=== PATIENT | female | born 1980 | race Caucasian/White ===

== ENCOUNTER 2016-11-17 13:35 | Inpatient (IN) | payer OTHER ==
[~2016-11-17] VITALS: Ht 167.6 cm; Wt 81.2 kg
[2016-11-17] MEDS ORDERED: ROPINIROLE HY0.25 MG PO (13:49)
[2016-11-17] MEDS ORDERED: 'CLONIDINE0.1 MG PO (13:50)
[2016-11-17] MEDS ORDERED: QUETIAPINE FUM400 M1 PO (13:51)
[2016-11-17] MEDS ORDERED: TOPAMAX50 MG PO ×2 (13:52→15:16)
[2016-11-17] MEDS ORDERED: ZANAFLEX4 MG PO (13:53)
[2016-11-17] MEDS ORDERED: TRAZODONE50 MG PO (13:54)
[2016-11-17] MEDS ORDERED: NEURONTIN300 MG PO (13:55)
[2016-11-17] MEDS ORDERED: EFFEXOR XR150 M1 PO (13:58)
[2016-11-17] MEDS ORDERED: LOVASTATIN20 MG PO (14:00)
[2016-11-17] MEDS ORDERED: PROPRANOLOL HCL40 M1 PO (14:00)
[2016-11-17] MEDS ORDERED: OMEPRAZOLE D/R20 MG PO (14:01)
[2016-11-17] MEDS ORDERED: GOOD NEIGHBOR L10 MG PO (14:02)
[2016-11-17] MEDS ORDERED: ARMOUR THYROID60 MG PO (14:03)
[2016-11-17 15:07] LABS: BILIRUBIN NEGATIVE (NEGATIVE); BLOOD NEGATIVE (NEGATIVE); CLARITY CLEAR (CLEAR); COLOR YELLOW (YELLOW); GLUCOSE NEGATIVE (NEGATIVE); KETONE NEGATIVE (NEGATIVE); LEUKO ESTERASE NEGATIVE (NEGATIVE); NITRITE NEGATIVE (NEGATIVE); PROTEIN NEGATIVE (NEGATIVE); UROBILINOGEN 0.2 E.U./dl (0.2-1.0)
[2016-11-17] MEDS ORDERED: SEROQUEL100 MG PO (15:14)
[2016-11-17 15:18] LABS: BASO % 0.5 % (0.0-1.0); EOS # 0.2 10*3/uL (0.0-0.4); EOS % 4.6 % (1.0-4.0); HEMATOCRIT 37.5 % (37.0-47.0); HEMOGLOBIN 12.1 g/dl (12.0-16.0); LYMPH # 1.9 10*3/uL (1.3-4.4); LYMPH % 43.6 % (27.0-41.0); MEAN CELL VOLUME 95.7 fl (81.0-99.0); MEAN CORPUSCULAR HGB 30.9 pg (27.0-31.0); MEAN CORPUSCULAR HGB CONC 32.3 g/dl (33.0-37.0); MEAN PLATELET VOLUME 10.3 fl (9.6-12.3); MONO # 0.3 10*3/uL (0.1-1.0); MONO % 7.4 % (3.0-9.0); NEUT # 1.9 10*3/uL (2.3-7.9); NEUT % 43.7 % (47.0-73.0); PLATELET COUNT AUTOMATED 140 10*3/uL (130-400); RED BLOOD COUNT 3.92 10*6/uL (4.10-5.10); RED CELL DISTRI WIDTH 13.4 % (0-14.5); WHITE BLOOD COUNT 4.3 10*3/uL (4.8-10.8)
[2016-11-17 15:19] LABS: MUCOUS TRACE; RBC 0-2 rbc/hpf (0-2); URINE REFLEX COMMENT NO (NO); WBC 0-2 wbc/hpf (0-5)
[2016-11-17 15:21] LABS: URINE AMPHETAMINES < 1000 (1000ng/ml); URINE BARBITURATES < 200 (200ng/ml); URINE COCAINE < 300 (300ng/ml)
[2016-11-17 15:22] LABS: INTERNATIONAL NORM RATIO 0.9 (2.0-3.5)
[2016-11-17 15:34] LABS: ALKALINE PHOSPHATASE 78 U/L (45-117); BILIRUBIN, TOTAL 0.1 mg/dl (0.2-1.0); BUN 16 mg/dl (7-24); CARBON DIOXIDE 17 mmol/L (21-32); CHLORIDE 114 mmol/L (98-107); EST GLOM FILT AFRICAN AMERICAN > 60 ml/min; GLUCOSE 101 mg/dL (65-99); POTASSIUM 4.1 mmol/L (3.5-5.1); SGOT/AST 29 IU/L (3-35); SGPT/ALT 25 U/L (12-78); SODIUM 141 mmol/L (136-145); TOTAL PROTEIN 6.6 gm/dL (6.4-8.2)
[2016-11-17 16:00] VITALS: BP 99/51
[2016-11-17 20:00] VITALS: BP 99/57
[2016-11-18] VITALS: BP 101/53
[2016-11-18 07:07] LABS: HIV 1+2 AB + HIV1 P24 AG Non Reactive (Non Reactive)
[2016-11-18 08:00] VITALS: BP 86/46
[2016-11-18 12:00] VITALS: BP 94/52
[2016-11-18 16:00] VITALS: BP 112/59
[2016-11-18 20:00] VITALS: BP 117/59
[2016-11-19] VITALS: BP 124/82
[2016-11-19 08:00] VITALS: BP 91/54
[2016-11-19 16:00] VITALS: BP 101/54
[2016-11-19] MEDS ORDERED: ATARAX,VISTARIL50 MG PO (18:25)
[2016-11-19] MEDS ORDERED: ZOFRAN 4 MG ED2 TAB PO (18:25)
[2016-11-19 20:00] VITALS: BP 109/47
[2016-11-20] VITALS: BP 108/54
[2016-11-20 06:31] LABS: BASO % 0.2 % (0.0-1.0); EOS # 0.2 10*3/uL (0.0-0.4); HEMATOCRIT 35.3 % (37.0-47.0); HEMOGLOBIN 11.6 g/dl (12.0-16.0); LYMPH # 2.4 10*3/uL (1.3-4.4); LYMPH % 53.9 % (27.0-41.0); MEAN CELL VOLUME 92.7 fl (81.0-99.0); MEAN CORPUSCULAR HGB 30.4 pg (27.0-31.0); MEAN CORPUSCULAR HGB CONC 32.9 g/dl (33.0-37.0); MEAN PLATELET VOLUME 9.6 fl (9.6-12.3); MONO # 0.5 10*3/uL (0.1-1.0); MONO % 10.2 % (3.0-9.0); NEUT # 1.4 10*3/uL (2.3-7.9); NEUT % 30.7 % (47.0-73.0); PLATELET COUNT AUTOMATED 192 10*3/uL (130-400); RED BLOOD COUNT 3.81 10*6/uL (4.10-5.10); WHITE BLOOD COUNT 4.4 10*3/uL (4.8-10.8)
[2016-11-20 07:08] LABS: EST GLOM FILT AFRICAN AMERICAN > 60 ml/min
[2016-11-20 08:00] VITALS: BP 116/54
[2016-11-20 08:33] LABS: HEPATITIS C VIRUS ANTIBODY >11.0 s/co (0.0-0.9)
[2016-11-20 11:53] LABS: BILIRUBIN NEGATIVE (NEGATIVE); BLOOD NEGATIVE (NEGATIVE); CLARITY CLOUDY (CLEAR); COLOR YELLOW (YELLOW); GLUCOSE NEGATIVE (NEGATIVE); KETONE TRACE (NEGATIVE); LEUKO ESTERASE NEGATIVE (NEGATIVE); NITRITE NEGATIVE (NEGATIVE); PROTEIN TRACE (NEGATIVE); SPECIFIC GRAVITY 1.025 (1.005-1.030)
[2016-11-20 11:59] LABS: BACTERIA 1+; EPITHELIAL CELLS 16-20
[2016-11-20 12:00] VITALS: BP 120/56
[2016-11-20 12:00] LABS: URINE REFLEX COMMENT NO (NO)
== END 2016-11-20 13:40 | disposition home or self-care (01) | DRG 897 ==
LOC: 4E 13:35
PROVIDERS: Internal Medicine; Student in an Organized Health Care Education/Training Program
DX: F11.23 Opioid dependence with withdrawal (principal); E87.8 Other disorders of electrolyte and fluid balance, not elsewhere classified; E44.0 Moderate protein-calorie malnutrition; F31.9 Bipolar disorder, unspecified; F14.10 Cocaine abuse, uncomplicated; F41.9 Anxiety disorder, unspecified; G40.909 Epilepsy, unspecified, not intractable, without status epilepticus; G43.909 Migraine, unspecified, not intractable, without status migrainosus; B19.20 Unspecified viral hepatitis C without hepatic coma; K52.9 Noninfective gastroenteritis and colitis, unspecified; F17.200 Nicotine dependence, unspecified, uncomplicated; Z90.710 Acquired absence of both cervix and uterus; Z80.9 Family history of malignant neoplasm, unspecified; Z79.899 Other long term (current) drug therapy; Z71.6 Tobacco abuse counseling; Z68.28 Body mass index [BMI] 28.0-28.9, adult